=== PATIENT | male | born 1935 | race Caucasian/White ===

== ENCOUNTER 2021-05-12 15:05 | Inpatient (IN) | payer OTHER, MEDICARE, BC ==
[~2021-05-12] VITALS: Ht 170.2 cm; Wt 72.0 kg
[2021-05-12 15:41] LABS: BASOPHILS % (AUTO) 0.4 % (0-1); EOSINOPHILS % (AUTO) 0 % (0-6); HEMOGLOBIN 9.8 g/dl (14.0-17.9); LYMPHOCYTES # (AUTO) 1.2 X10'3 (1.1-4.8); LYMPHOCYTES % (AUTO) 9.8 % (21-51); MEAN CORPUSCULAR HEMOGLOBIN 32.7 PG (27.0-31.0); MEAN CORPUSCULAR HGB CONC 33.8 g/dL (33.0-36.5); MEAN CORPUSCULAR VOLUME 96.8 FL (78-98); MEAN PLATELET VOLUME 8.6 FL (7.4-10.4); MONOCYTES # (AUTO) 0.3 X10'3 (0-0.9); MONOCYTES % (AUTO) 2.5 % (2-12); NEUTROPHILS # (AUTO) 10.3 X10'3 (1.8-7.7); NEUTROPHILS % (AUTO) 87.3 % (42-75); PLATELET COUNT 212 X10'3 (140-440); WHITE BLOOD COUNT 11.8 X10'3 (4.5-11.0)
[2021-05-12 15:52] LABS: ALANINE AMINOTRANSFERASE 14 U/L (12-78); ALBUMIN 3.1 G/DL (3.4-5.0); ALBUMIN/GLOBULIN RATIO 1.1 (1.1-1.5); ALKALINE PHOSPHATASE 41 IU/L (46-116); ANION GAP 6 (8-16); ASPARTATE AMINO TRANSFERASE 13 U/L (10-37); BILIRUBIN,TOTAL 0.3 MG/DL (0.1-1.0); BLOOD UREA NITROGEN 58 MG/DL (7-18); BUN/CREATININE RATIO 76.3 (5.4-32.0); CALCIUM 8.2 MG/DL (8.5-10.1); CHLORIDE 109 MMOL/L (99-107); CREATININE 0.76 MG/DL (0.60-1.10); GLUCOSE 122 MG/DL (70-104); POTASSIUM 4.3 MMOL/L (3.5-5.1); SODIUM 142 MMOL/L (135-145); TOTAL CARBON DIOXIDE 27.2 MMOL/L (24-32); TOTAL PROTEIN 5.9 G/DL (6.4-8.2); eGFR > 90 ML/MIN
--- NOTE | 2021-05-12 17:02 | NUR ---
mapping technician at bedside.
[2021-05-12] MEDS ORDERED: pantoprazole IV 80 MG in normal saline 100ml IV soln 100 ML IV ONE (17:15)
[2021-05-12] MEDS ORDERED: pantoprazole 40MG/NS 100ML BAG 100 ML IV ONE (17:15)
[2021-05-12] MEDS ORDERED: magnesium hydroxide 30ml (MOM) UD suspension PO PRN (17:45)
[2021-05-12] MEDS ORDERED: acetaminophen 325mg tablet PO PRN ×2 (17:45)
[2021-05-12] MEDS ORDERED: mag hydrox/Alum hydrox/simeth 30ml oral suspension PO PRN (17:45)
[2021-05-12] MEDS ORDERED: ondansetron/PF 4mg/2ml inj IV PRN (17:45)
[2021-05-12] MEDS: dextrose 5%-1/2 normal saline 1,000 ML IV SCH (17:45)
[2021-05-12] MEDS ORDERED: morphine 2 MG/ML inj. syringe IV PRN ×2 (17:45)
[2021-05-12] MEDS: [UNRECOGNIZED DRUG - OTHER] IV ONE ×2 (17:51→17:52)
[2021-05-12] MEDS: PANTOPRAZOLE IV ONE ×2 (17:51→17:52)
[2021-05-12] MEDS ORDERED: SYN0.088T PO (19:17)
[2021-05-12] MEDS ORDERED: PRAV80TA3 PO (19:18)
[2021-05-12] MEDS ORDERED: CLOP75TA34 PO (19:21)
[2021-05-12] MEDS ORDERED: LISI1TAB49 PO (19:21)
[2021-05-12] MEDS ORDERED: LEVO112T5 PO (19:32)
[2021-05-12] MEDS: docusate sod 100mg capsule PO SCH (20:00)
[2021-05-12 21:34] VITALS: BP 105/50
[2021-05-13] VITALS (12 sets, daily range): BP systolic 0–141; BP diastolic 39–53
[2021-05-13] MEDS: dextrose 5%-1/2 normal saline 1,000 ML IV SCH ×3 (03:45→23:45)
[2021-05-13 07:03] LABS: BASOPHILS % (AUTO) 0.8 % (0-1); EOSINOPHILS # (AUTO) 0.1 X10'3 (0-0.9); EOSINOPHILS % (AUTO) 2.2 % (0-6); HEMATOCRIT 23.3 % (42.0-52.0); HEMOGLOBIN 7.8 g/dl (14.0-17.9); LYMPHOCYTES # (AUTO) 1.3 X10'3 (1.1-4.8); LYMPHOCYTES % (AUTO) 21.7 % (21-51); MEAN CORPUSCULAR HEMOGLOBIN 33.1 PG (27.0-31.0); MEAN CORPUSCULAR HGB CONC 33.6 g/dL (33.0-36.5); MEAN CORPUSCULAR VOLUME 98.6 FL (78-98); MEAN PLATELET VOLUME 8.7 FL (7.4-10.4); MONOCYTES # (AUTO) 0.4 X10'3 (0-0.9); MONOCYTES % (AUTO) 7.4 % (2-12); NEUTROPHILS % (AUTO) 67.9 % (42-75); PLATELET COUNT 169 X10'3 (140-440); RED BLOOD COUNT 2.36 X10'6 (4.70-6.10); WHITE BLOOD COUNT 5.9 X10'3 (4.5-11.0)
[2021-05-13 07:11] LABS: ALBUMIN 2.6 G/DL (3.4-5.0); ANION GAP 2 (8-16); BLOOD UREA NITROGEN 51 MG/DL (7-18); BUN/CREATININE RATIO 86.4 (5.4-32.0); CALCIUM 7.6 MG/DL (8.5-10.1); CHLORIDE 111 MMOL/L (99-107); CREATININE 0.59 MG/DL (0.60-1.10); GLUCOSE 113 MG/DL (70-104); POTASSIUM 3.9 MMOL/L (3.5-5.1); SODIUM 142 MMOL/L (135-145); TOTAL CARBON DIOXIDE 29.5 MMOL/L (24-32); eGFR > 90 ML/MIN
[2021-05-13] MEDS: docusate sod 100mg capsule PO SCH ×2 (08:05→20:00)
[2021-05-13] MEDS ORDERED: fentaNYL/PF 50MCG/1 ML 2ML syringe ONE (12:18)
[2021-05-13] MEDS ORDERED: MIDAZolam 1 MG/ML 5ML VIAL ONE (12:18)
[2021-05-13] MEDS ORDERED: LIDOcaine Viscous 15ml cup ONE (12:19)
[2021-05-14] VITALS (10 sets, daily range): BP systolic 94–112; BP diastolic 36–46
[2021-05-14 05:44] LABS: BASOPHILS # (AUTO) 0.1 X10'3 (0-0.2); EOSINOPHILS # (AUTO) 0.2 X10'3 (0-0.9); EOSINOPHILS % (AUTO) 2.9 % (0-6); HEMATOCRIT 22.2 % (42.0-52.0); HEMOGLOBIN 7.3 g/dl (14.0-17.9); LYMPHOCYTES # (AUTO) 1.5 X10'3 (1.1-4.8); LYMPHOCYTES % (AUTO) 20.5 % (21-51); MEAN CORPUSCULAR HEMOGLOBIN 32.6 PG (27.0-31.0); MEAN CORPUSCULAR HGB CONC 32.8 g/dL (33.0-36.5); MEAN CORPUSCULAR VOLUME 99.5 FL (78-98); MEAN PLATELET VOLUME 8.8 FL (7.4-10.4); MONOCYTES # (AUTO) 0.4 X10'3 (0-0.9); NEUTROPHILS # (AUTO) 4.9 X10'3 (1.8-7.7); NEUTROPHILS % (AUTO) 69.6 % (42-75); PLATELET COUNT 173 X10'3 (140-440); RED BLOOD COUNT 2.23 X10'6 (4.70-6.10); RED CELL DISTRIBUTION WIDTH 14.2 % (11.5-14.5); WHITE BLOOD COUNT 7.1 X10'3 (4.5-11.0)
[2021-05-14 06:08] LABS: ALBUMIN 2.6 G/DL (3.4-5.0); ANION GAP 1 (8-16); BLOOD UREA NITROGEN 30 MG/DL (7-18); BUN/CREATININE RATIO 52.6 (5.4-32.0); CALCIUM 7.7 MG/DL (8.5-10.1); CHLORIDE 110 MMOL/L (99-107); CREATININE 0.57 MG/DL (0.60-1.10); GLUCOSE 101 MG/DL (70-104); SODIUM 138 MMOL/L (135-145); TOTAL CARBON DIOXIDE 27.4 MMOL/L (24-32); eGFR > 90 ML/MIN
--- NOTE | 2021-05-14 06:44 | NUR ---
Problems reprioritized. Patient report given, questions answered & plan of care reviewed with GLADIS NEVILLE.
[2021-05-14] MEDS: docusate sod 100mg capsule PO SCH (08:00)
[2021-05-14] MEDS ORDERED: ESOM40CA17 PO (09:13)
--- NOTE | 2021-05-14 11:41 | NUR ---
Charting by Bianca JUAREZ reviewed by Han Haley RN
--- NOTE | 2021-05-14 15:46 | NUR ---
Unable to palpate L radial pulse possibly due to scar tissue. Pt has positive ulnar pulse with adequate cap refill.
--- NOTE | 2021-05-14 17:15 | NUR ---
pt. given discharge instructions without further questions. PIV taken out catheter tip intact. Pt. left unit at 1700
== END 2021-05-14 17:05 | disposition home or self-care (01) | DRG 378 ==
LOC: ER 15:05 → ED HOLD 17:45 → CANBEDREQ 18:34 → PCU 3S 21:10
PROVIDERS: ADMIT Internal Medicine; ATTEND Internal Medicine
PROC: 0DB68ZX Excision of Stomach, Via Natural or Artificial Opening Endoscopic, Diagnostic (ICD-10-PCS; principal; 2021-05-13)
PROC: 0D748ZZ Dilation of Esophagogastric Junction, Via Natural or Artificial Opening Endoscopic (ICD-10-PCS; 2021-05-13)
PROC: 30233N1 Transfusion of Nonautologous Red Blood Cells into Peripheral Vein, Percutaneous Approach (ICD-10-PCS; 2021-05-14)
DX: K29.81 Duodenitis with bleeding (principal); D62 Acute posthemorrhagic anemia; Z66 Do not resuscitate; E03.9 Hypothyroidism, unspecified; E78.00 Pure hypercholesterolemia, unspecified; T39.395A Adverse effect of other nonsteroidal anti-inflammatory drugs [NSAID], initial encounter; I10 Essential (primary) hypertension; R13.14 Dysphagia, pharyngoesophageal phase; Z60.2 Problems related to living alone; I73.9 Peripheral vascular disease, unspecified; K22.2 Esophageal obstruction; Z79.02 Long term (current) use of antithrombotics/antiplatelets; Z80.9 Family history of malignant neoplasm, unspecified; Z85.810 Personal history of malignant neoplasm of tongue; Z87.891 Personal history of nicotine dependence; Z88.0 Allergy status to penicillin; Y92.89 Other specified places as the place of occurrence of the external cause
CPT/HCPCS: 36415; 36430; 43239; 43248; 71045; 80048; 80053; 83880; 84484; 85025; 86885; 86900; 86901; 86920; 87081; 93005; 93925; 93978; 96365; 97161; 97530; 99152; 99153; 99285; A4620; C9113; G0378; J2250; J2270; J3010; J7040; J7042; P9016